=== PATIENT | male | born 1940 | race Caucasian/White ===

== ENCOUNTER 2018-06-26 14:17 | Inpatient (IN) ==
[2018-06-26] MEDS ORDERED: AZITHROMYCIN INJ 500 MG in SODIUM CHLORIDE 0.9% 250 ML IV STA (14:37)
[2018-06-26] MEDS ORDERED: ALBUTEROL/IPRATROPIUM 3 ML NEB RESP TX STA (14:37)
[2018-06-26] MEDS ORDERED: ONDANSETRON 4 MG/2 ML VIAL IV STA (14:37)
[2018-06-26] MEDS ORDERED: methylPREDNISolone SOD SUC 125 MG/2 ML VIAL IV STA (14:37)
[2018-06-26 15:23] LABS: Hematocrit 21.6 VOL% (42.0-52.0); Hemoglobin 6.6 GM/DL (14.0-18.0); Immature Granulocytes % 2.2 %; Immature Granulocytes Absolute 0.07 #; Lymphocytes # 0.9 10*3/uL (1.4-4.0); Lymphocytes % 26.9 % (21.2-54.2); Mean Corpuscular HGB Conc 30.6 GM/DL (32-36); Mean Corpuscular Hemoglobin 31 PG (27-34); Mean Corpuscular Volume 101.4 FL (87-102); Mean Platelet Volume 15.2 FL (9.6-12.0); Monocytes # 0.5 10*3/uL (0.11-0.8); Monocytes % 15.6 % (1.7-12.7); NRBC # 0.03 10*3/uL; Neutrophils # 1.8 10*3/uL (1.4-7.4); Neutrophils % 55.3 % (38.7-73.9); Platelet Count 52 T/CUMM (130-400); Red Blood Count 2.13 MC/CUMM (3.8-5.5); Red Cell Distribution Width 19.5 % (9.3-17.3); White Blood Count 3.2 T/CUMM (4-12)
[2018-06-26 15:35] LABS: INR 1.1; PT Patient Result 11.3 SECS; Partial Thromboplastin Time 26.2 SECS (0-40)
[2018-06-26 15:45] LABS: Apearance,Urine Slightly Hazy (Clear); Bacteria,Urine Occasional /HPF (Few); Bilirubin,Urine Negative (Negative); Blood, Urine Negative (Negative); Glucose,Urine (UA) Negative (Negative); Hyaline Casts,Urine 4 /LPF (0-3); Ketones,Urine Negative (Negative); Mucus,Urine Occasional /LPF (Occasional); Nitrite,Urine Negative (Negative); Protein,Urine Negative; Urine Color Amber (Yellow); Urine Specific Gravity 1.017 (1.001-1.035); WBC,Urine 2 /HPF (0-6)
[2018-06-26 15:57] LABS: Ammonia 34 UMOL/L (11-32)
[2018-06-26 16:01] LABS: Alanine Aminotransferase 19 U/L (16-61); Albumin 3.7 G/DL (3.4-5.0); Alkaline Phosphatase 91 U/L (45-117); Aspartate Amino Transferase 18 U/L (0-37); Blood Urea Nitrogen 15 MG/DL (7-18); Calcium 8.3 MG/DL (8.5-10.1); Glucose 198 MG/DL (74-106); Potassium 3.3 MMOL/L (3.5-5.1); Sodium 136 MMOL/L (136-145); Total Protein 6.8 G/DL (6.4-8.3); Troponin I < 0.015 NG/ML (0.00-0.045)
[2018-06-26] MEDS ORDERED: POTASSIUM BICARB EFFERVESCENT 25 MEQ TABLET PO ONE (16:10)
[2018-06-26 16:16] LABS: Barbiturates Screen,Urine Negative (Negative); Benzodiazepines Screen,Urine Negative (Negative); Cannabinoid Screen,Urine Negative (Negative); Opiate Screen,Urine Negative (Negative); Phencyclidine Screen,Urine Negative (Negative)
[2018-06-26] MEDS ORDERED: ACETAMINOPHEN 325 MG TABLET PO PRN (17:45)
[2018-06-26] MEDS ORDERED: SODIUM CHLORIDE 0.9% 1,000 ML IV PRN (17:45)
[2018-06-26] MEDS ORDERED: ONDANSETRON 4 MG/2 ML VIAL IV PRN (17:45)
[2018-06-26] MEDS ORDERED: NON-FORMULARY MEDICATION (Albuterol Sulfate [Ventolin Hfa] 2 PUFF) INH PRN (17:51)
[2018-06-26] MEDS ORDERED: ALBUTEROL 2.5 MG/3 ML NEB RESP TX PRN (17:51)
[2018-06-26] MEDS ORDERED: DEXTROSE 50% 25 GM/50 ML VIAL IV PRN (18:07)
[2018-06-26] MEDS ORDERED: GLUCAGON 1 MG VIAL IM PRN (18:07)
[2018-06-26] MEDS ORDERED: FUROSEMIDE 40 MG/4 ML VIAL IV PRN (18:08)
[2018-06-26 18:18] LABS: Band Neutrophils 2 % (0-10); Eosinophils 1 % (0-10); Hypochromasia 1+; Lymphocytes 20 % (20-55); Macrocytosis 1+; Nucleated Red Blood Cells 1 (0-5); Platelet Estimate Decreased; Segmented Neutrophils 64 % (50-85); Total Cells Counted 100
[2018-06-26 18:46] LABS: Hematocrit 22.3 VOL% (42.0-52.0); Hemoglobin 6.7 GM/DL (14.0-18.0); Immature Granulocytes % 3.1 %; Immature Granulocytes Absolute 0.08 #; Lymphocytes # 0.3 10*3/uL (1.4-4.0); Lymphocytes % 10.9 % (21.2-54.2); Mean Corpuscular Hemoglobin 31 PG (27-34); Mean Corpuscular Volume 102.8 FL (87-102); Monocytes # 0.2 10*3/uL (0.11-0.8); Monocytes % 6.6 % (1.7-12.7); NRBC # 0.03 10*3/uL; Neutrophils % 79.4 % (38.7-73.9); Platelet Count 60 T/CUMM (130-400); Red Blood Count 2.17 MC/CUMM (3.8-5.5); Red Cell Distribution Width 19.3 % (9.3-17.3); White Blood Count 2.6 T/CUMM (4-12)
[2018-06-26 19:12] LABS: Folate 16.3 NG/ML (5.4-24.0); Vitamin B12 729 PG/ML (211-911)
[2018-06-26 19:56] LABS: Sedimentation Rate-Westergren 70 MM/HR (0-20)
[2018-06-26] MEDS: IPRATROPIUM 500 MCG/2.5 ML NEB RESP TX SCH ×2 (21:38→22:55)
[2018-06-26] MEDS: INSULIN REGULAR 100 UNIT/ML SUBCUT SCH (21:55)
[2018-06-26] MEDS: POTASSIUM CHLORIDE 20 MEQ TABLET PO SCH (21:55)
[2018-06-27] MEDS: IPRATROPIUM 500 MCG/2.5 ML NEB RESP TX SCH ×4 (01:28→19:09)
[2018-06-27] MEDS: POTASSIUM CHLORIDE 20 MEQ TABLET PO SCH (01:50)
[2018-06-27] MEDS: LEVOTHYROXINE 125 MCG TABLET PO SCH (05:40)
[2018-06-27 07:15] LABS: Hematocrit 25.8 VOL% (42.0-52.0); Hemoglobin 8.1 GM/DL (14.0-18.0); Immature Granulocytes % 2.3 %; Immature Granulocytes Absolute 0.07 #; Lymphocytes # 0.5 10*3/uL (1.4-4.0); Lymphocytes % 14.8 % (21.2-54.2); Mean Corpuscular HGB Conc 31.4 GM/DL (32-36); Mean Corpuscular Hemoglobin 30 PG (27-34); Mean Corpuscular Volume 96.6 FL (87-102); Monocytes # 0.2 10*3/uL (0.11-0.8); Monocytes % 6.1 % (1.7-12.7); Neutrophils # 2.4 10*3/uL (1.4-7.4); Neutrophils % 76.8 % (38.7-73.9); Platelet Count 63 T/CUMM (130-400); Red Blood Count 2.67 MC/CUMM (3.8-5.5); Red Cell Distribution Width 18.8 % (9.3-17.3); White Blood Count 3.1 T/CUMM (4-12)
[2018-06-27 07:40] LABS: Albumin 3.4 G/DL (3.4-5.0); Bilirubin,Total 2.9 MG/DL (0.2-1.0); Calcium 8.1 MG/DL (8.5-10.1); Osmolality,Calculated 286.1 MOS/KG (273-304); Potassium 4.6 MMOL/L (3.5-5.1); Risk Ratio 2.92; Total Protein 6.6 G/DL (6.4-8.3); VLDL CHOLESTEROL 15.4 MG/DL
[2018-06-27] MEDS ORDERED: POTASSIUM CHLORIDE 20 MEQ TABLET PO SCH (08:00)
[2018-06-27 08:11] LABS: Band Neutrophils 11 % (0-10); Lymphocytes 20 % (20-55); Platelet Estimate Decreased; Segmented Neutrophils 62 % (50-85); Total Cells Counted 100
[2018-06-27 08:12] LABS: Anisocytosis 1+; Basophilic Stippling Slight; Giant Platelets Few; Macrocytosis Slight; Polychromasia Slight
[2018-06-27] MEDS: INSULIN REGULAR 100 UNIT/ML SUBCUT SCH ×3 (09:49→16:58)
[2018-06-27] MEDS: predniSONE 10 MG TABLET PO SCH (09:49)
[2018-06-27] MEDS: PANTOPRAZOLE 40 MG TABLET PO SCH (09:49)
[2018-06-27] MEDS ORDERED: CALCIUM CARBONATE CHEW 500 MG TABLET PO PRN (14:46)
[2018-06-27] MEDS: CIPROFLOXACIN INJ 400 MG in PREMIX 1 EACH IV SCH (16:58)
[2018-06-27 19:10] LABS: INR 1.1; PT Patient Result 11.4 SECS
[2018-06-27 20:20] LABS: Hepatitis A Ab IgM Result Negative (Negative); Hepatitis B Core IgM Quant 0.11 Index; Hepatitis B Core IgM Result Negative (Negative); Hepatitis B Surface Ag Quant < 0.10 Index; Hepatitis B Surface Ag Result Negative (Negative); Hepatitis C Virus Ab Quant 0.09 Index; Hepatitis C Virus Ab Result Negative (Negative)
[2018-06-28] MEDS: IPRATROPIUM 500 MCG/2.5 ML NEB RESP TX SCH ×2 (00:01→07:49)
[2018-06-28] MEDS: INSULIN REGULAR 100 UNIT/ML SUBCUT SCH ×2 (00:28→08:45)
[2018-06-28] MEDS: CIPROFLOXACIN INJ 400 MG in PREMIX 1 EACH IV SCH (06:25)
[2018-06-28] MEDS: LEVOTHYROXINE 125 MCG TABLET PO SCH (06:25)
[2018-06-28 08:19] LABS: Hematocrit 28.6 VOL% (42.0-52.0); Hemoglobin 8.8 GM/DL (14.0-18.0); Immature Granulocytes Absolute 0.08 #; Lymphocytes % 23.7 % (21.2-54.2); Mean Corpuscular HGB Conc 30.8 GM/DL (32-36); Mean Corpuscular Hemoglobin 30 PG (27-34); Mean Corpuscular Volume 98.6 FL (87-102); Monocytes # 0.5 10*3/uL (0.11-0.8); NRBC # 0.02 10*3/uL; Neutrophils # 2.5 10*3/uL (1.4-7.4); Neutrophils % 62.3 % (38.7-73.9); Platelet Count 65 T/CUMM (130-400); Red Cell Distribution Width 20.4 % (9.3-17.3)
[2018-06-28 08:42] LABS: Platelet Estimate Decreased
[2018-06-28 08:43] LABS: Anisocytosis Slight; Basophilic Stippling Slight; Polychromasia Slight
[2018-06-28] MEDS: PANTOPRAZOLE 40 MG TABLET PO SCH (08:45)
[2018-06-28] MEDS: predniSONE 10 MG TABLET PO SCH (08:45)
[2018-06-28 09:45] VITALS: BP 122/68
[2018-06-28 10:44] LABS: % Iron Saturation 33.2 % (18-50)
[2018-06-29 09:19] LABS: Hemoglobin A1 (Alkaline) 97.8 % (96.5-98.5); Hemoglobin A2 (Alkaline) 2.2 % (1.5-3.5)
[2018-06-30 13:07] LABS: Smooth Muscle Antibody Negative (Negative)
[2018-06-30 14:16] LABS: Mitochondrial Antibody (M2) <0.1 U
== END 2018-06-28 11:32 | disposition home or self-care (01) | DRG 809 ==
LOC: N.ED 14:17 → N.EDINP 17:45 → SUATTDRO 17:45 → N.5E 19:08
PROVIDERS: ADMIT Phlebology; ATTEND Hospitalist